=== PATIENT | female | born 1985 | race Caucasian/White ===

== ENCOUNTER 2017-09-24 02:10 | Emergency (ER) | payer SELFPAY ==
--- NOTE | 2017-09-24 02:27 | ED Physician Documentation ---
General Adult - HISTORIAN Historian: patient - HPI Chief Complaint: General Adult (mouth pain) Additional Information: Patient states that she chipped a tooth off several weeks ago and started to have some pain associated with it about 36 hours ago. No fever or chills noted. Has appointment with a dentist on the 11 of October. Patient feel that the left side of her face is swollen. Has not had any difficulties with eat in or drinking. Has not has a history of HTN in the past. Is not taking any blood pressure medications at this time. Onset: days ago (36 hours) Timing: still present - ROS CONST: denies: fever, chills - PAST HX Past History: other (PCOS, Migraine headaches, hypothyroidism, anemia) Surgeries/Procedures: , cholecystectomy, other (partial thyroidectomy, hernia repair, appendectomy) Immunizations: referred to PCP Allergies/Adverse Reactions: Allergies Allergy/AdvReac Type Severity Reaction Status Date / Time Penicillins Allergy Intermediate Hives Verified 09/24/17 02:39 Sulfa (Sulfonamide Allergy Intermediate Hives Verified 09/24/17 02:39 Antibiotics) Home Medications: Ambulatory Orders Medication Instructions Recorded Clindamycin HCl [Cleocin] 300 mg PO QID #40 capsule 09/24/17 Ferrous Gluconate [Iron] 336 mg PO D 09/24/17 Levothyroxine Sodium [Synthroid] 50 mcg PO D 09/24/17 Mecobalamin [B-12] 1,000 mcg PO D 09/24/17 Metformin HCl [Glucophage] 500 mg PO D 09/24/17 - SOCIAL HX Smoking History: less than 1 pack/day (1/4 -1/2 ppd) Alcohol Use: none Drug Use: none - FAMILY HX Family History: No - REVIEWED ASSESSMENTS Nursing Assessment Reviewed: Yes Vitals Reviewed: Yes General Adult Physical Exam - PHYSICAL EXAM GENERAL APPEARANCE: mild distress EENT: pharynx normal, no signs of dehydration, other (dental cavity to left upper insisor) NECK: normal inspection, thyroid normal, supple. No: lymphadenopathy, stiff neck RESPIRATORY: no resp distress, chest non-tender, breath sounds normal. No: wheezes, rales, rhonchi CVS: reg rate & rhythm, heart sounds normal, equal pulses, no murmur, no gallop BACK: normal inspection SKIN: warm/dry, normal color NEURO: mood/affect nml, cognition normal Discharge Clincal Impression: Dental caries Prescriptions: Clindamycin HCl [Cleocin] 300 mg PO QID #40 capsule Referrals: Primary Doctor,No [REFERRING] - 2 Days Additional Instructions: It is important for you to keep your dental appointment. Avoid hot/cold foods. Take Aleve (220mg tablets) two tablets twice a day with food. Take clindamycin 300mg 4 times a day. You need to see your primary care provider to have you blood pressure rechecked. Condition: Stable Disposition: 01 HOME, SELF-CARE Decision to Admit: NO Date of Decison to Admit: 09/24/17 Decision Time: 02:42
[2017-09-24] MEDS ORDERED: CLINDAMYCIN HCL 150 MG CAPSULE PO ONE (02:35)
[2017-09-24] MEDS ORDERED: KETOROLAC TROMETHAMINE 60 MG/2 ML VIAL IM ONE (02:36)
[2017-09-24 03:14] VITALS: BP 171/93
== END 2017-09-24 03:00 | disposition home or self-care (01) ==
LOC: ED 02:10
DX: K02.9 Dental caries, unspecified (principal)
CPT/HCPCS: A9270; J1885; 96372; 99282